=== PATIENT | male | born 1965 ===

== ENCOUNTER 2018-09-21 00:47 | Day surgery (SDC) | payer OTHER ==
[~2018-09-21] VITALS: Ht 175.3 cm; Wt 74.4 kg
[2018-09-21] MEDS ORDERED: LIDOCAINE/SOD BICARB 8.4% SYR ID ONE (11:15)
[2018-09-21] MEDS ORDERED: NORMOSOL R SOLN(*) 1000 ML BAG 1,000 ML IV PRN ×2 (11:15→12:15)
[2018-09-21] MEDS ORDERED: FAMOTIDINE 20 MG TAB PO ONE (11:15)
[2018-09-21] MEDS ORDERED: MIDAZOLAM 2 MG/2 ML VIAL IVP PRN (11:15)
[2018-09-21] MEDS ORDERED: GENTAMICIN(*) 80 MG/2 ML VIAL 160 MG in NS(*) 0.9% 100 ML BAG 100 ML IVPB ONE (12:15)
[2018-09-21] MEDS ORDERED: cefTRIAXone(*) 1 GM VIAL 1 GM in NS(*) 0.9% 100 ML ADDVANT BAG 100 ML IVPB ONE (12:15)
[2018-09-21 12:18] VITALS: BP 159/101
[2018-09-21] MEDS ORDERED: IOPAMIDOL-200 50 ML VIAL IS ONE (13:01)
[2018-09-21] MEDS ORDERED: fentaNYL CITR 100 MCG/2 ML AMP ONE ×2 (13:05→14:42)
[2018-09-21] MEDS ORDERED: PROPOFOL EMUL(*) 10MG/ML 20 ML 20 ML ONE (13:06)
[2018-09-21] MEDS ORDERED: LIDOCAINE 2% IV 100 MG/5ML SYR ONE (13:06)
[2018-09-21] MEDS ORDERED: IOPAMIDOL 61% 100 ML INFUS BTL 100 ML ONE (14:08)
[2018-09-21] MEDS ORDERED: DEXAMETHASONE SOD 4 MG/ML VIAL ONE (14:13)
[2018-09-21] MEDS ORDERED: ONDANSETRON 4 MG/2 ML VIAL ONE (14:14)
[2018-09-21] MEDS ORDERED: IBUP600T22 PO (15:16)
[2018-09-21] MEDS ORDERED: CEPH500T7 PO (15:19)
[2018-09-21] MEDS ORDERED: HYDR-653 PO (15:19)
[2018-09-21] MEDS ORDERED: TAMS0.4C70 PO ×2 (15:49→15:51)
--- NOTE | 2018-09-22 03:37 | OPERATIVE REPORT 1 ---
EVENT DATE: September 21, 2018 SURGEON: Hoang Bardales MD ANESTHESIOLOGIST: Micky Leo MD ANESTHESIA: General. PREOPERATIVE DIAGNOSIS Right renal lithiasis x3. POSTOPERATIVE DIAGNOSIS Right renal lithiasis x3. PROCEDURE PERFORMED Right extracorporeal shockwave lithotripsy with treatment of three stone foci. DESCRIPTION OF PROCEDURE Under general anesthetic, the patient was positioned for right extracorporeal shockwave lithotripsy. After localization by fluoroscopy, the approximately 5 mm stone in the inferior pole area of the right kidney was treated with a total of approximately 500 shocks, and IV contrast was administered to light up the kidney collecting system. That was accomplished. The contrast showed treatment in the appropriate area for the largest stone located in the inferior pole area of the right kidney. A total of 1500 shocks were administered to the stone. After administration of the contrast media and confirmation of the inferior pole area, the smaller stones in the upper pole and midpole area of the right kidney were treated with a total of 1500 shocks, progressing from low to high kV fairly rapidly. Patient tolerated the procedure satisfactorily and returned to the recovery room in satisfactory condition. This is a 53-year-old white male complaining of right flank pain on [address] showed right renal lithiasis x3 with no associated hydronephrosis. Patient believes that he passed the stone. The emergency room told him he probably had a viral gastroenteritis. Urine culture showed regrowth. Urinalysis in the office showed no blood on 15 September 2018. Historically, Dr. Salcedo, urologist in [place], treated him for a stone at the hospital in [place]. Patient had a great deal of difficulty tolerating his stent. Patient's white count at that time, on 11 September, was 7100. GFR was greater than 60. Calcium was 9.7. Patient was seen in the emergency room at [facility]. His x-rays at that time, CT-IVP without contrast, were reviewed x2 with radiologist at our facility. Preoperatively, the x-ray again was reviewed and confirmed the stone in the inferior pole area on the right and in the mid-upper pole right and superior pole on the right. Preoperatively, options were discussed with the patient. He adamantly refused external placement and removal. Patient was cautioned about passing possibly a large stone particle that may give him significant ureteral/renal colic. He seemed to understand. Reviewed that with the patient several times preoperatively. He adamantly refused external stent and removal. The option of IV contrast was discussed with the patient, and he was agreeable to that modality of therapy if needed. That has been accomplished. See operative note for details. Patient will be ready for discharge home when alert and functional, to force fluids to 12 glasses of water per day. Activities are as tolerated. He is to strain all his urine. He was sent home with strainers. Plan followup on 06 October 2018. He is to call for an appointment. Patient is to percuss his right kidney frequently to facilitate passage of stone particles. Copy of instructions for renal percussion was given to the patient. Patient was sent home with a copy of overall instructions, and he is to continue his usual medications. Patient was given my personal cell phone number to call me if there are any problems, or to the emergency room if unable to reach me. Plan KUB on 06 October 2018, prior to my seeing him in the clinic on that day. Patient will be discharged home on Keflex, Ace, and Motrin therapy. He is to continue his usual medications. BAILEY
== END 2018-09-21 15:49 | disposition home or self-care (01) ==
LOC: OR 00:47
DX: N20.0 Calculus of kidney (principal)
CPT/HCPCS: 50590; J0696; J1100; J1580; J2001; J2250; J2405; J2704; J3010; J7050; Q9967; Q9966